=== PATIENT | male | born 1960 | race African-American/Black ===

== ENCOUNTER 2016-11-27 22:35 | Emergency (ER) | payer OTHER, MEDICARE | END 2016-11-27 23:52 | disposition home or self-care (01) | LOC: D.ER 22:35 | DX: M25.561 Pain in right knee (principal); S40.011A Contusion of right shoulder, initial encounter; S60.212A Contusion of left wrist, initial encounter; S60.211A Contusion of right wrist, initial encounter; V89.2XXA Person injured in unspecified motor-vehicle accident, traffic, initial encounter; E11.9 Type 2 diabetes mellitus without complications; I10 Essential (primary) hypertension ==